=== PATIENT | male | born 1940 | race Caucasian/White ===

== ENCOUNTER 2019-01-22 10:43 | Emergency (ER) | payer MEDICARE, OTHER ==
--- NOTE | 2019-01-22 11:04 | ERPHSYRPT ---
- History of Present Illness Time Seen by Provider: 01/22/19 11:03 Historian: patient, family Exam Limitations: no limitations Patient Subjective Stated Complaint: pt here for blood in underwear this am when he woke up, no clots, no bm today, no abd pain Triage Nursing Assessment: pt alert, walked in,resp easy, skin w/d/p. abd soft and nontender Timing/Duration: today Activities at Onset: none Quality: other (no symptoms, just saw some rectal blood) Abdominal Pain Onset Location: other (no pain) Severity of Pain-Max: none Severity of Pain-Current: none Modifying Factors: Improves With: nothing Associated Symptoms: denies symptoms Previous symptoms: no prior history Allergies/Adverse Reactions: UNOBTAINABLE Allergy (Unverified 01/22/19 10:58) Home Medications: Apixaban [Eliquis] 5 mg DAILY 01/22/19 [History] Aspirin 81 gm Chew [Baby Aspirin 81 mg Chew] 81 mg DAILY 01/22/19 [History ] Irbesartan 75 mg DAILY 01/22/19 [History] Metoprolol Tartrate 25 mg DAILY 01/22/19 [History] Hx Influenza Vaccination/Date Given: No Hx Pneumococcal Vaccination/Date Given: Yes Immunizations Up to Date: Yes - Review of Systems Constitutional: No Symptoms Eyes: No Symptoms Ears, Nose, & Throat: No Symptoms Respiratory: No Symptoms Cardiac: No Symptoms Abdominal/Gastrointestinal: Hematochezia (small amount) Genitourinary Symptoms: No Symptoms Musculoskeletal: No Symptoms Skin: No Symptoms Neurological: No Symptoms Psychological: No Symptoms Endocrine: No Symptoms Hematologic/Lymphatic: No Symptoms Immunological/Allergic: No Symptoms All Other Systems: Reviewed and Negative - Past Medical History Pertinent Past Medical History: Yes Neurological History: Stroke ENT History: No Pertinent History Cardiac History: Angina Respiratory History: No Pertinent History Endocrine Medical History: No Pertinent History Musculoskeletal History: Arthritis GI Medical History: No Pertinent History Psycho-Social History: No Pertinent History - Past Surgical History Past Surgical History: Yes Other Surgical History: tumor removed behind lungs - Social History Smoking Status: Never smoker Exposure to second hand smoke: No Drug Use: none Patient Lives Alone: No - Nursing Vital Signs Nursing Vital Signs: Initial Vital Signs Temperature 97.0 F 01/22/19 10:50 Pulse Rate 63 01/22/19 10:50 Respiratory Rate 18 01/22/19 10:50 Blood Pressure 146/104 01/22/19 10:50 O2 Sat by Pulse Oximetry 93 L 01/22/19 10:50 Pain Scale Pain Intensity 0 - Physical Exam General Appearance: no apparent distress, alert Eye Exam: PERRL/EOMI Ears, Nose, Throat Exam: normal ENT inspection Neck Exam: normal inspection Respiratory Exam: normal breath sounds Cardiovascular Exam: regular rate/rhythm, normal heart sounds Gastrointestinal/Abdomen Exam: soft, normal bowel sounds Rectal Exam: normal rectal tone, hemorrhoids (large external hemorrhoids have been bleeding, slight, no thrombosis), other (slight amount of blood picked up on glove from ext. rhoid while doing internal rectal, neg.) Back Exam: decreased range of motion Extremity Exam: normal inspection Neurologic Exam: alert, oriented x 3, cooperative Skin Exam: normal color SpO2 Interpretation: normal SpO2: 93 O2 Delivery: Room Air - Course Nursing assessment & vital signs reviewed: Yes - Radiology Exams Abdomen X-ray Interpretation: Interpreted by me, Other (Normal abdomen overall.) Ordered Tests: Active Orders 24 hr Category Date Time Status KUB Stat Exams 01/22/19 11:04 Taken CBC W DIFF Stat Lab 01/22/19 11:12 Completed CMP Stat Lab 01/22/19 11:12 Completed Occult Blood-Screening (Stool) [Occult Blood - Cancer Lab 01/22/19 11:38 Completed Screen] Stat Lab/Rad Data: Laboratory Result Diagrams 01/22/19 11:12 01/22/19 11:12 Laboratory Results 01/22/19 01/22/19 01/22/19 Range/Units 11:38 11:12 11:12 WBC 8.1 (4.0-10.5) K/mm3 RBC 5.23 (4.1-5.6) M/mm3 Hgb 16.1 (12.5-18.0) gm/dl Hct 48.4 (42-50) % MCV 92.5 (78-100) fl MCH 30.8 (26-32) pg MCHC 33.3 (32-36) g/dl RDW 13.8 (11.5-14.0) % Plt Count 184 (150-450) K/mm3 MPV 10.0 H (6-9.5) fl Gran % 58.6 (36.0-66.0) % Eos # (Auto) 0.37 (0-0.5) Absolute Lymphs (auto) 2.11 (1.0-4.6) Absolute Monos (auto) 0.82 (0.0-1.3) Lymphocytes % 26.2 (24.0-44.0) % Monocytes % 10.2 (0.0-12.0) % Eosinophils % 4.6 (0.00-5.0) % Basophils % 0.4 (0.0-0.4) % Absolute Granulocytes 4.72 (1.4-6.9) Basophils # 0.03 (0-0.4) Sodium 143 (137-145) mmol/L Potassium 4.4 (3.5-5.1) mmol/L Chloride 106 (98-107) mmol/L Carbon Dioxide 28 (22-30) mmol/L Anion Gap 12.9 (5-15) MEQ/L BUN 17 (9-20) mg/dL Creatinine 1.62 H (0.66-1.25) mg/dL Estimated GFR 43.8 ML/MIN Glucose 101 (74-106) mg/dL Calcium 9.5 (8.4-10.2) mg/dL Total Bilirubin 2.90 H (0.2-1.3) mg/dL AST 26 (17-59) U/L ALT 33 (0-50) U/L Alkaline Phosphatase 133 H (38-126) U/L Serum Total Protein 7.2 (6.3-8.2) g/dL Albumin 4.0 (3.5-5.0) g/dL Stool Occult Bld Scrn POSITIVE A (NEGATIVE) - Progress Progress: unchanged Counseled pt/family regarding: diagnosis, need for follow-up (See PCP or general surgeon for a recheck. Tucks pad or similar OK.) - Departure Departure Disposition: Home Clinical Impression: External hemorrhoid, bleeding Condition: Stable Critical Care Time: No Referrals: DOCTOR,NO FAMILY [Primary Care Provider] - Instructions: Hemorrhoids (DC), Gastrointestinal Bleeding (DC) Additional Instructions: Try Tucks medicated pads, or something similar. Use gauze there as needed. Avoid constipation. Recheck with your family
[2019-01-22 11:14] LABS: BASOPHIL % 0.4 % (0.0-0.4); Basophil (Absolute #) 0.03 (0-0.4); Eosinophil % 4.6 % (0.00-5.0); Eosinophil (Absolute #) 0.37 (0-0.5); Granulocyte Absolute (ANC) 4.72 (1.4-6.9); Granulocytes % 58.6 % (36.0-66.0); Hematocrit 48.4 % (42-50); Hemoglobin 16.1 gm/dl (12.5-18.0); Lymphocyte (Absolute #) 2.11 (1.0-4.6); Lymphocytes % 26.2 % (24.0-44.0); Mean Cell Volume 92.5 fl (78-100); Mean Corpuscular Hemoglobin 30.8 pg (26-32); Mean Corpuscular Hgb Concent. 33.3 g/dl (32-36); Monocyte (Absolute #) 0.82 (0.0-1.3); Monocytes % 10.2 % (0.0-12.0); Platelet Count 184 K/mm3 (150-450); Red Blood Count 5.23 M/mm3 (4.1-5.6); Red Cell Distribution Width 13.8 % (11.5-14.0); White Blood Count 8.1 K/mm3 (4.0-10.5)
[2019-01-22 11:25] LABS: ANION GAP 12.9 MEQ/L (5-15); BILIRUBIN,TOTAL 2.9 mg/dL (0.2-1.3); Calcium 9.5 mg/dL (8.4-10.2); Creatinine 1 1.62 mg/dL (0.66-1.25); Potassium 4.4 mmol/L (3.5-5.1); Total Protein 7.2 g/dL (6.3-8.2)
[2019-01-22 12:46] VITALS: BP 165/62; PULSE 62
[2019-01-22 14:06] VITALS: O2SAT 93
--- NOTE | 2019-01-22 19:03 | XRAY ---
Indication: Rectal bleeding. Comparison: None KUB demonstrates nonspecific nonobstructed bowel gas pattern with mild scattered colonic fecal debris, chunky prostate calcifications, and mild scattered vascular calcifications including splenic artery. Remaining solid organs unremarkable. Osseous structures intact with osteopenia, mild/moderate multilevel thoracolumbar degenerative spondylosis, and mild curvature scoliosis. Lung bases clear. Impression: Negative KUB with mild fecal stasis and chronic features.
== END 2019-01-22 12:46 | disposition home or self-care (01) ==
LOC: ED 10:43
DX: K64.4 Residual hemorrhoidal skin tags (principal)
CPT/HCPCS: 36000; 36415; 74018; 80053; 82270; 85025; 99284